=== PATIENT | male | born 1990 | race Caucasian/White ===

== ENCOUNTER → 2024-10-14 | Outpatient (CLI) | payer MEDICARE, OTHER ==
[2024-10-14 15:02] VITALS: BP 115/76; PULSE 90; RESP 16; TEMP 98.5
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
== END ==
LOC: 3 N SLEEP 14:15
PROVIDERS: ATTEND Internal Medicine Critical Care Medicine
DX: E66.01 Morbid (severe) obesity due to excess calories (principal); E03.9 Hypothyroidism, unspecified; E78.5 Hyperlipidemia, unspecified; F90.9 Attention-deficit hyperactivity disorder, unspecified type; F41.9 Anxiety disorder, unspecified; Z68.43 Body mass index [BMI] 50.0-59.9, adult
CPT/HCPCS: 99211

== ENCOUNTER 2024-11-11 19:44 | Outpatient (CLI) | payer MEDICARE, OTHER ==
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
== END 2024-11-12 05:52 | disposition home or self-care (01) ==
LOC: 3 N SLEEP 19:44
PROVIDERS: ATTEND Internal Medicine
DX: G47.33 Obstructive sleep apnea (adult) (pediatric) (principal); E03.9 Hypothyroidism, unspecified; E78.5 Hyperlipidemia, unspecified; F32.A Depression, unspecified; F41.9 Anxiety disorder, unspecified; F90.9 Attention-deficit hyperactivity disorder, unspecified type; E66.01 Morbid (severe) obesity due to excess calories; R53.82 Chronic fatigue, unspecified; Z68.43 Body mass index [BMI] 50.0-59.9, adult
CPT/HCPCS: 95810

== ENCOUNTER 2025-01-26 19:50 | Outpatient (CLI) | payer MEDICARE, OTHER ==
--- NOTE | 2025-01-29 11:14 | P.PCN ---
Description of Procedure: CLINICAL: Titration with positive air pressure has been done for correction of respiratory abnormalities during sleep. DESCRIPTION OF PROCEDURE: The standard montage for clinical polysomnography included the electroencephalogram, the electrocardiogram, the mentalis surface electromyography and Lead II cardiography. The respiratory battery consisted of measurements of nasal /buccal air flow, pressure transducer measurements from the nose, thoracic and /or abdominal effort and intercostal surface electromyography. Video monitoring has been done to check for any parasomnia events. Nocturnal oxyhemoglobin saturations were obtained by finger oximetry. Step-reardon titration with positive airway pressure was utilized to control respiratory events. Raw data of sleep recording has been reviewed and is adequate. RESULTS: Sleep efficiency was decreased to 69.0%. Latency to sleep onset was significantly prolonged to 58.0 minutes.]. Sleep architecture showed stage N1 was short 3.1%, Delta sleep was extremely short 0.2%, REM sleep was decreased to 14.6%. Heart rate was minimum 61 BPM, maximum 74 BPM, average 66 BPM. EMG showed 18 periodic limb movements per hour with 0 micriarousals per hour. PAP titration have been done with CPAP up to the pressure 11 cm H2O. Patient had problems with CPAP, switched to BPAP. BPAP titrated up to 19/15 cm H2O. The best results were at the pressure 19/15 cm H2O. Apnea hypopnea index reduced to 0. IMPRESSION: 1. Obstructive sleep apnea hypopnea syndrome mostly on controle with BPAP treatment. 2. Mild periodic limb movements have been documented. Please see other impressions from consultation. PLAN: 1. The patient will have treatment with positive air pressure equipment with the level of pressure out of BiPAP with maximal inspiratory pressure 19 and minimal expiratory pressure 10, pressure support 4 cm H2O and should use it every night for the whole night. 2. Watching and losing weight. 3. Sleep hygiene with regular time in bed for at least 8 hours. 4. No driving if feeling any sleepiness. 5. I will see the patient for follow up visit to explain the results of the test, recommendations, check compliance with treatment and make any necessary adjustment related to mask fitting, pressure and humidification. 6. Please check iron profile including ferritin level. Low level of iron may increase risk for periodic limb movements Thank you very much for allowing me to participate in the management of your patient. Sincerely, Corey Arnett MD, PhD, FAASM Diplomat of [employer] Sleep Medicine Board of [employer] Punch Operator of [facility] [place] cc: Bonifacio Gandhi MD
== END 2025-01-27 05:45 | disposition home or self-care (01) ==
LOC: 3 N SLEEP 19:50
PROVIDERS: ATTEND Internal Medicine
DX: G47.33 Obstructive sleep apnea (adult) (pediatric) (principal); G47.61 Periodic limb movement disorder; Z99.89 Dependence on other enabling machines and devices
CPT/HCPCS: 95811

== ENCOUNTER → 2025-03-20 | Outpatient (CLI) | payer MEDICARE, OTHER ==
--- NOTE | 2025-03-20 13:42 | P.PROGSL ---
Subjective DATE: 03/20/2025 FOLLOW UP VISIT. Patient with obstructive sleep apnea hypopnea syndrome return to sleep center for follow-up visit. Recently patient had sleep study which documented obstructive sleep apnea hypopnea syndrome. Patient was initiated on PAP therapy and today is first visit after treatment was started. Patient was able to use PAP equipment every night for the whole night. The patient does not have significant problems with the mask, PAP pressure and humidification. Gerald sleepiness scale is 4, which is normal. I checked information from PAP unit. PAP unit pressure maximal inspiratory pressure 19, minimal expiratory pressure 10, pressure support 10, average pressure 15/11 cm H2O. Usage is 100% for more then 4 hours, average 8.2 hours per night. Leak is increased to 41.8 l/m. Apnea Hypopnea Index is 1.0, which is normal. MEDICATIONS:1. Levothyroxine 50 mcg once a day 2. Pravastatin 20 mg once a day 3. Vitamin D During physical exam: GENERAL: A pleasant patient without any distress. VITAL SIGNS: BP 117/77, HR 81, RR 16, weight 317.4, temperature 98.1, oxygen saturation at room air 98%. HEENT: PERRLA, EOMI.low position of soft palate, Mallapati 4 . NECK: Supple. No JVD. LUNGS: Clear to percussion and to auscultation. Good air exchange. No wheezing or rhonchi. HEART: S1, S2 regular. ABDOMEN: Soft and nontender. Obese EXTREMITIES: No clubbing or cyanosis. COLLECTIONS AND ARCHIVES DIRECTOR: Awake, alert, and oriented x3. No focal deficit. Impressions: 1. Obstructive sleep apnea-hypopnea syndrome. Patient demonstrated great compliance with treatment, benefiting from treatment. 2. Obesity. 3. Hypothyroidism. 4. Hyperlipidemia. 5. History of anxiety. 6. History of depression. 7. History of ADHD. 8. History of seizures. Plan: 1. Continue using PAP equipment every night for the whole night. 2. To change air filter at least 1-2 times per month. 3. PAP unit should stay lower then position of the head. 4. Advised patient to remove all remaining water from humidifier canister daily and make it dry after each usage. Refill canister with fresh distilled water before each usage. 5. Sleep hygiene with regular time in bed for at least 8 hours. 6. Precautions related to driving. No driving if feel any sleepiness. 7. I will maintain prescription for PAP supplies including mask, tube, filters. 8. Follow up visit in 12 months or earlier if patient has any problems. 9. Watching and losing weight. Thank you very much for allowing me to participate in the management of your patient. Corey Arnett MD, PhD, FAASM. Diplomat of [place] [employer], Sleep Medicine Board by [place] Ultrasound Tester of [facility] [place] Objective Home Medications: Home Medications Medication Instructions Recorded Confirmed Type Ergocalciferol [Vitamin D2 (1250 1.25 mg PO DAILY 10/14/24 10/14/24 History Mcg = 60396 Iu)] Levothyroxine Sodium [Synthroid] 50 mcg PO DAILY 10/14/24 10/14/24 History Pravastatin Sodium [Pravachol] 20 mg PO DAILY 10/14/24 10/14/24 History
== END ==
LOC: 3 N SLEEP 13:07
PROVIDERS: ATTEND Internal Medicine
CPT/HCPCS: 99212